=== PATIENT | male | born 1955 | race Caucasian/White ===

== ENCOUNTER → 2017-12-10 | Outpatient (CLI) | payer OTHER | END | disposition home or self-care (01) | LOC: SHCH 11:28 | PROVIDERS: ATTEND Internal Medicine Cardiovascular Disease | DX: I25.10 Atherosclerotic heart disease of native coronary artery without angina pectoris (principal); I10 Essential (primary) hypertension | CPT/HCPCS: 93306 ==

== ENCOUNTER → 2017-12-13 | Outpatient (CLI) | payer OTHER ==
[~2017-12-13] VITALS: Ht 182.9 cm; Wt 105.2 kg
[~2017-12-13] MED LIST: REGADENOSON 0.4 MG/5 ML PF SYG IVP SCH
== END | disposition home or self-care (01) ==
LOC: EDUNIT# 08:30 → SHCH 10:59
PROVIDERS: ATTEND Internal Medicine Cardiovascular Disease
DX: I25.10 Atherosclerotic heart disease of native coronary artery without angina pectoris (principal); I10 Essential (primary) hypertension
CPT/HCPCS: 78452; 93017; 96374; A9500 ×2; J2785

== ENCOUNTER → 2018-07-10 | Outpatient (CLI) | payer OTHER | END | disposition home or self-care (01) | LOC: RAH 14:25 | PROVIDERS: ATTEND Internal Medicine Critical Care Medicine | DX: M48.02 Spinal stenosis, cervical region (principal); M25.78 Osteophyte, vertebrae | CPT/HCPCS: 72141 ==

== ENCOUNTER 2019-04-08 08:00 | Day surgery (SDC) | payer OTHER ==
[~2019-04-08] VITALS: Ht 180.3 cm; Wt 104.3 kg
[~2019-04-08 08:00] MED LIST changes: +CLOP75TA32 PO; +EZET10TA48 PO; +HYDR-4060 PO; +LISI1TAB11 PO; +METF-444 PO; +METO25TA6 PO; +OMEP-50 PO; -REGADENOSON 0.4 MG/5 ML PF SYG IVP SCH; +ROSU20TA31 PO; +SODIUM CHLORIDE 0.9% 1000ML 1,000 ML IV ONE; +THIA100T75 PO
[2019-04-08 09:19] VITALS: BP 123/64
[2019-04-08] MEDS ORDERED: LIDOCAINE HCL-MPF 2% 5ML VIAL ONE (10:09)
[2019-04-08] MEDS ORDERED: PROPOFOL 1000 MG/100 ML 100 ML IV ONE (10:09)
[2019-04-08 10:39] VITALS: BP 92/33
[2019-04-08 10:44] VITALS: BP 94/53
[2019-04-08 10:49] VITALS: BP 106/61
[2019-04-08 10:54] VITALS: BP 110/63
[2019-04-08 11:00] VITALS: BP 108/60
--- NOTE | 2019-04-08 11:00 | NUR ---
PLAVIX PER ANGEL LAYTON RN, PT IS TO HOLD PLAVIX FOR 3 DAYS, ORDERED BY DR. ORTIZ. PT INSTRUCTED. VERBALIZED UNDERSTANDING.
== END 2019-04-08 11:25 | disposition home or self-care (01) ==
LOC: ENDO 08:00 → DAH 08:00 → ENDO 11:25
PROVIDERS: ATTEND Internal Medicine
DX: Z12.11 Encounter for screening for malignant neoplasm of colon (principal); D12.4 Benign neoplasm of descending colon; K63.5 Polyp of colon; K29.50 Unspecified chronic gastritis without bleeding; K57.30 Diverticulosis of large intestine without perforation or abscess without bleeding; K64.1 Second degree hemorrhoids; E78.5 Hyperlipidemia, unspecified; I10 Essential (primary) hypertension; K21.9 Gastro-esophageal reflux disease without esophagitis; I25.10 Atherosclerotic heart disease of native coronary artery without angina pectoris; J44.9 Chronic obstructive pulmonary disease, unspecified; F41.9 Anxiety disorder, unspecified; F32.9 Major depressive disorder, single episode, unspecified; E11.9 Type 2 diabetes mellitus without complications; M19.90 Unspecified osteoarthritis, unspecified site; Z95.1 Presence of aortocoronary bypass graft; Z98.890 Other specified postprocedural states; Z90.49 Acquired absence of other specified parts of digestive tract; Z79.84 Long term (current) use of oral hypoglycemic drugs; Z79.899 Other long term (current) drug therapy; Z87.891 Personal history of nicotine dependence; K22.8 Other specified diseases of esophagus
CPT/HCPCS: 43239; 45380; 45385; 82948 ×2; 88305; 93005; A4606; J2704; J3490; J7030

== ENCOUNTER → 2019-05-19 | Outpatient (CLI) | payer OTHER ==
[~2019-05-19] MED LIST changes: -LISI1TAB11 PO; +LISI1TAB27 PO; -SODIUM CHLORIDE 0.9% 1000ML 1,000 ML IV ONE
== END | disposition home or self-care (01) ==
LOC: SHCH 08:01
PROVIDERS: ATTEND Internal Medicine Cardiovascular Disease
DX: I65.23 Occlusion and stenosis of bilateral carotid arteries (principal); I25.10 Atherosclerotic heart disease of native coronary artery without angina pectoris
CPT/HCPCS: 93880

== ENCOUNTER → 2020-03-28 | Outpatient (CLI) | payer OTHER ==
[~2020-03-28] MED LIST changes: +IOHEXOL-350 75 ML VIAL IV ONE; -LISI1TAB27 PO; +LISI1TAB51 PO; -OMEP-50 PO; +OMEP20CA12 PO
== END | disposition home or self-care (01) ==
LOC: RAH 08:44
PROVIDERS: ATTEND Internal Medicine Critical Care Medicine
DX: K57.30 Diverticulosis of large intestine without perforation or abscess without bleeding (principal); I70.0 Atherosclerosis of aorta; Z90.49 Acquired absence of other specified parts of digestive tract
CPT/HCPCS: 74177; Q9967

== ENCOUNTER 2020-09-27 11:08 | Observation (INO) | payer OTHER ==
[~2020-09-27] VITALS: Ht 180.3 cm; Wt 105.1 kg
[~2020-09-27 11:08] MED LIST changes: -IOHEXOL-350 75 ML VIAL IV ONE
[2020-09-27] MEDS ORDERED: NITROGLYCERIN 1GM/1 INCH PACKET TD ONE ×3 (11:12→23:09)
[2020-09-27 11:19] LABS: BASOPHILS % (AUTO) 0.6 % (0.0-5.0); EOSINOPHILS % (AUTO) 1.4 % (0.0-8.0); HEMATOCRIT 41.8 % (42-54); LYMPHOCYTES % (AUTO) 17.9 % (21.0-51.0); MEAN CORPUSCULAR HEMOGLOBIN 31.8 pg (27.0-33.0); MEAN CORPUSCULAR HGB CONC 33.7 g/dL (32.0-36.0); MEAN CORPUSCULAR VOLUME 94.1 fL (79-99); NEUTROPHILS % (AUTO) 59.1 % (40.0-77.0); PLATELET COUNT (AUTO) 187 K/uL (130-400); RED BLOOD CELL COUNT(AUTO) 4.44 MIL/uL (4.50-6.20); RED CELL DISTRIBUTION WIDTH 13.2 % (11.0-15.5); WHITE BLOOD COUNT (AUTO) 5.2 K/uL (4.8-10.8)
[2020-09-27 11:44] LABS: INR 1.1 (0.85-1.15); PROTHROMBIN TIME 11.7 SEC (9.6-11.6)
[2020-09-27 11:45] LABS: PARTIAL THROMBOPLASTIN TIME 26.5 SEC (26.3-35.5)
[2020-09-27 12:00] LABS: CREATININE 1.1 mg/dL (0.5-1.5); POTASSIUM 3.9 mmol/L (3.5-5.1)
[2020-09-27 12:05] LABS: ALBUMIN 3.5 g/dL (3.5-5.0); BILIRUBIN,TOTAL 0.5 mg/dL (0.2-1.0)
[2020-09-27] MEDS ORDERED: MORPHINE SULFATE 4 MG/1ML SYG ONE (14:36)
[2020-09-27] MEDS ORDERED: ONDANSETRON HCL 4 MG/2 ML VIAL ONE (14:36)
[2020-09-27 14:39] LABS: APPEARANCE,URINE CLEAR (CLEAR); BILIRUBIN,URINE NEGATIVE (NEGATIVE); COLOR,URINE YELLOW (YELLOW); GLUCOSE, URINE (UA) NEGATIVE (NEGATIVE); KETONES,URINE NEGATIVE (NEGATIVE); LEUKOCYTE ESTERASE ,URINE NEGATIVE (NEGATIVE); NITRATE,URINE NEGATIVE (NEGATIVE); OCCULT BLOOD,URINE NEGATIVE (NEGATIVE); PH,URINE 5.5 (5.0-8.0); PROTEIN,URINE NEGATIVE (NEGATIVE); UROBILINOGEN,URINE 0.2 mg/dL (0.2-1.0)
[2020-09-27] MEDS ORDERED: ASPIRIN 325 MG TABLET PO ONE (16:15)
[2020-09-27] MEDS ORDERED: CLONIDINE HCL 0.1 MG TABLET PO PRN (16:15)
[2020-09-27] MEDS ORDERED: DOCUSATE SODIUM 100 MG CAP PO PRN (16:15)
[2020-09-27] MEDS ORDERED: ACETAMINOPHEN 325 MG TAB PO PRN (16:15)
[2020-09-27] MEDS ORDERED: ACETAMINOPHEN 650 MG SUPPOSITORY RC PRN (16:15)
[2020-09-27] MEDS: NITROGLYCERIN 1GM/1 INCH PACKET TD SCH ×2 (16:15→22:15)
[2020-09-27] MEDS ORDERED: ONDANSETRON HCL 4 MG/2 ML VIAL IVP PRN (16:15)
[2020-09-27] MEDS ORDERED: LABETALOL 20 MG/4 ML DISP.SYRIN IV PRN (16:15)
[2020-09-27] MEDS ORDERED: LACTULOSE 20 GM/30 ML UDCUP PO PRN (16:15)
[2020-09-27] MEDS: INSULIN HUMULIN R 100 UNIT/ML 3ML SQ SCH ×2 (16:30→21:00)
[2020-09-27 16:53] LABS: CREATINE KINASE, TOTAL 108 U/L (21-232); MYOGLOBIN 65 ng/mL (10-92); TROPONIN I < 0.04 ng/mL (0.00-0.06)
[2020-09-27] MEDS ORDERED: ACETAMINOPHEN 325 MG TAB ONE (17:53)
[2020-09-27] MEDS ORDERED: MORPHINE SULFATE 2 MG/ML 1ML SYG ONE ×2 (17:53→23:10)
[2020-09-27] MEDS ORDERED: THIAMINE HCL 100 MG/ML 2ML VIAL IVP SCH (20:15)
[2020-09-27] MEDS ORDERED: CHLORDIAZEPOXIDE HCL 25 MG CAP PO PRN (20:15)
[2020-09-27] MEDS ORDERED: LORAZEPAM 0.5 MG TABLET PO PRN (20:15)
[2020-09-27] MEDS ORDERED: FOLIC ACID 1 MG TABLET PO SCH (20:15)
[2020-09-27] MEDS ORDERED: THIAMINE HCL 100 MG TABLET PO SCH (20:15)
[2020-09-27] MEDS: ENOXAPARIN SODIUM 100 MG/1 ML SQ SCH (21:00)
[2020-09-27] MEDS: METOPROLOL TARTRATE 25 MG TAB PO SCH (21:00)
[2020-09-27 22:08] LABS: CREATINE KINASE, TOTAL 93 U/L (21-232); MYOGLOBIN 54 ng/mL (10-92); TROPONIN I < 0.04 ng/mL (0.00-0.06)
[2020-09-27] MEDS ORDERED: METOPROLOL TARTRATE 25 MG TAB ONE (23:09)
[2020-09-27] MEDS ORDERED: THIAMINE HCL 100 MG TABLET ONE (23:09)
[2020-09-27] MEDS ORDERED: FOLIC ACID 1 MG TABLET ONE (23:10)
[2020-09-27] MEDS ORDERED: ENOXAPARIN SODIUM 100 MG/1 ML SQ ONE (23:32)
[2020-09-27] MEDS ORDERED: ACETYLCYSTEINE 600 MG CAPSULE ONE (23:32)
[2020-09-28] VITALS (7 sets, daily range): BP systolic 126–157; BP diastolic 61–83
[2020-09-28] MEDS ORDERED: IOHEXOL-350 75 ML VIAL IV ONE (00:08)
[2020-09-28] MEDS: MORPHINE SULFATE 2 MG/ML 1ML SYG IVP PRN ×4 (04:03→20:05)
[2020-09-28] MEDS: NITROGLYCERIN 1GM/1 INCH PACKET TD SCH (04:10)
[2020-09-28] MEDS ORDERED: SODIUM CHLORIDE 0.9% 1000ML 1,000 ML IV ONE (05:30)
[2020-09-28] MEDS: INSULIN HUMULIN R 100 UNIT/ML 3ML SQ SCH ×4 (06:08→20:06)
[2020-09-28 06:12] LABS: BASOPHILS % (AUTO) 0.4 % (0.0-5.0); HEMATOCRIT 40.6 % (42-54); LYMPHOCYTES % (AUTO) 30.7 % (21.0-51.0); MEAN CORPUSCULAR HEMOGLOBIN 31.7 pg (27.0-33.0); MEAN CORPUSCULAR HGB CONC 33.7 g/dL (32.0-36.0); MONOCYTES % (AUTO) 18.8 % (3.0-13.0); NEUTROPHILS % (AUTO) 48.3 % (40.0-77.0); PLATELET COUNT (AUTO) 178 K/uL (130-400); RED BLOOD CELL COUNT(AUTO) 4.32 MIL/uL (4.50-6.20); RED CELL DISTRIBUTION WIDTH 13.2 % (11.0-15.5); WHITE BLOOD COUNT (AUTO) 5.1 K/uL (4.8-10.8)
[2020-09-28 06:43] LABS: CARBON DIOXIDE 24 mmol/L (21-32); CHLORIDE 101 mmol/L (101-111); CREATINE KINASE, TOTAL 94 U/L (21-232); GLOMERULAR FILTR. RATE CALC 79 mL/min (>60); GLUCOSE,RANDOM 130 mg/dL (70-105); MYOGLOBIN 41 ng/mL (10-92); PHOSPHORUS 3.1 mg/dL (2.5-4.9); POTASSIUM 3.7 mmol/L (3.5-5.1); SODIUM SERUM 138 mmol/L (136-145); TROPONIN I < 0.04 ng/mL (0.00-0.06); UREA NITROGEN, BLOOD 12 mg/dL (7-18)
[2020-09-28] MEDS ORDERED: ENOXAPARIN SODIUM 100 MG/1 ML SQ SCH (09:00)
[2020-09-28] MEDS ORDERED: ASPIRIN 81MG TAB.CHEW PO SCH (09:00)
[2020-09-28] MEDS: METOPROLOL TARTRATE 25 MG TAB PO SCH ×2 (09:03→20:01)
[2020-09-28] MEDS: ENOXAPARIN SODIUM 100 MG/1 ML SQ SCH (09:07)
[2020-09-28] MEDS: ACETYLCYSTEINE 600 MG CAPSULE PO SCH ×2 (09:07→20:00)
[2020-09-28] MEDS: FOLIC ACID 1 MG TABLET PO SCH (09:07)
[2020-09-28] MEDS: FAMOTIDINE/PF 20 MG/2 ML VIAL IV SCH ×2 (09:13→20:00)
[2020-09-28] MEDS: MULTIVITAMIN TABLET PO SCH (09:16)
[2020-09-28] MEDS ORDERED: PHARMACY COMMUNICATION MISC SCH (12:00)
[2020-09-28] MEDS ORDERED: COMPOUND PO MISCELLANEOUS 1 EACH MISC MISC PRN (12:15)
[2020-09-28] MEDS: LIDO 2% VISC 30ML+MAG/AL/SIMETH 30ML+DICYCLOMINE 20MG 10ML PO NR ×3 (12:40)
[2020-09-28 14:13] LABS: AMYLASE 65 U/L (25-115)
[2020-09-28 14:17] LABS: LIPASE < 50 U/L (114-286)
[2020-09-28] MEDS: LOSARTAN 50 MG TABLET PO SCH (14:24)
[2020-09-28] MEDS: CLOPIDOGREL BISULFATE 75 MG TAB PO SCH (14:24)
[2020-09-28] MEDS: PANTOPRAZOLE SODIUM 40 MG TABLET.DR PO SCH (20:01)
[2020-09-28] MEDS: APIXABAN 5 MG TABLET PO SCH (20:01)
[2020-09-28] MEDS ORDERED: ATORVASTATIN CALCIUM 40 MG TABLET PO SCH (21:00)
[2020-09-29] MEDS: MORPHINE SULFATE 2 MG/ML 1ML SYG IVP PRN (00:41)
[2020-09-29 03:36] VITALS: BP 133/66
[2020-09-29 03:38] LABS: MEAN CORPUSCULAR HGB CONC 33.6 g/dL (32.0-36.0); MEAN CORPUSCULAR VOLUME 95.5 fL (79-99); RED BLOOD CELL COUNT(AUTO) 4.4 MIL/uL (4.50-6.20); RED CELL DISTRIBUTION WIDTH 13.1 % (11.0-15.5); WHITE BLOOD COUNT (AUTO) 5.7 K/uL (4.8-10.8)
[2020-09-29 04:03] LABS: CREATININE 1.1 mg/dL (0.5-1.5); POTASSIUM 3.6 mmol/L (3.5-5.1)
[2020-09-29] MEDS ORDERED: LORAZEPAM 2 MG/ML 1 ML VIAL ONE (04:10)
[2020-09-29] MEDS ORDERED: LORAZEPAM 2 MG/ML 1 ML VIAL IVP ONE (04:15)
[2020-09-29] MEDS: INSULIN HUMULIN R 100 UNIT/ML 3ML SQ SCH ×2 (05:52→11:30)
[2020-09-29 08:10] VITALS: BP 158/72
[2020-09-29] MEDS: FOLIC ACID 1 MG TABLET PO SCH (09:31)
[2020-09-29] MEDS: MULTIVITAMIN TABLET PO SCH (09:31)
[2020-09-29] MEDS: APIXABAN 5 MG TABLET PO SCH (09:31)
[2020-09-29] MEDS: LOSARTAN 50 MG TABLET PO SCH (09:31)
[2020-09-29] MEDS: ACETYLCYSTEINE 600 MG CAPSULE PO SCH (09:31)
[2020-09-29] MEDS: METOPROLOL TARTRATE 25 MG TAB PO SCH (09:32)
[2020-09-29] MEDS: PANTOPRAZOLE SODIUM 40 MG TABLET.DR PO SCH (09:32)
[2020-09-29] MEDS: CLOPIDOGREL BISULFATE 75 MG TAB PO SCH (09:32)
[2020-09-29] MEDS: FAMOTIDINE/PF 20 MG/2 ML VIAL IV SCH (09:32)
[2020-09-29] MEDS ORDERED: APIX5TAB PO (10:44)
[2020-09-29] MEDS ORDERED: PANT40TA55 PO (10:50)
[2020-09-29] MEDS ORDERED: HYDROCODONE/ACETAMINOPHEN 5/325 MG TAB PO PRN (11:31)
[2020-09-29 11:43] VITALS: BP 122/58
[2020-09-29] MEDS: LIDO 2% VISC 30ML+MAG/AL/SIMETH 30ML+DICYCLOMINE 20MG 10ML PO NR ×3 (12:47)
[2020-09-29] MEDS ORDERED: METOPROLOL TARTRATE 25 MG TAB PO SCH (21:00)
== END 2020-09-29 12:30 | disposition home or self-care (01) ==
LOC: EDH 11:08 → EDHIP 16:02 → 4BH 09-28 00:39
PROVIDERS: ADMIT Internal Medicine Critical Care Medicine; ATTEND Internal Medicine Critical Care Medicine
DX: R07.89 Other chest pain (principal); I26.99 Other pulmonary embolism without acute cor pulmonale; I25.810 Atherosclerosis of coronary artery bypass graft(s) without angina pectoris; I10 Essential (primary) hypertension; E11.9 Type 2 diabetes mellitus without complications; E78.5 Hyperlipidemia, unspecified; E66.01 Morbid (severe) obesity due to excess calories; G89.29 Other chronic pain; M54.9 Dorsalgia, unspecified; K21.9 Gastro-esophageal reflux disease without esophagitis; J44.9 Chronic obstructive pulmonary disease, unspecified; E78.00 Pure hypercholesterolemia, unspecified; F10.10 Alcohol abuse, uncomplicated; Z87.891 Personal history of nicotine dependence; Z90.49 Acquired absence of other specified parts of digestive tract; Z95.1 Presence of aortocoronary bypass graft; Z79.01 Long term (current) use of anticoagulants; Z79.02 Long term (current) use of antithrombotics/antiplatelets; Z79.84 Long term (current) use of oral hypoglycemic drugs; Z79.899 Other long term (current) drug therapy; Z88.5 Allergy status to narcotic agent; Z68.32 Body mass index [BMI] 32.0-32.9, adult
CPT/HCPCS: 36415 ×3; 71045; 71260; 80048 ×2; 80053; 80061; 81003; 82150; 82550 ×4; 82948 ×6; 83690; 83735; 83874 ×3; 83880; 84100; 84484 ×4; 85025 ×2; 85027; 85378; 85610; 85730; 93005; 93306; 93970; 94760 ×2; 96372; 96374; 96375 ×2; 96376 ×2; 99285; G0378 ×43; J1650 ×2; J2060; J2270; J2405 ×2; J3490 ×3; Q9967

== ENCOUNTER → 2021-02-02 | Outpatient (CLI) | payer OTHER ==
[~2021-02-02] MED LIST changes: +APIX5TAB PO; -HYDR-4060 PO; -METF-444 PO; +PANT40TA55 PO
== END | disposition home or self-care (01) ==
LOC: SHCH 10:03
PROVIDERS: ATTEND Internal Medicine Cardiovascular Disease
DX: I87.2 Venous insufficiency (chronic) (peripheral) (principal); I10 Essential (primary) hypertension; I35.8 Other nonrheumatic aortic valve disorders
CPT/HCPCS: 93306; 93356; 93970

== ENCOUNTER → 2022-12-07 | Outpatient (CLI) | payer OTHER ==
[~2022-12-07] MED LIST changes: +EMPA10TA PO; +FURO20TA4 PO; +ISOS30TA92 PO; +LOSA50TA64 PO; +METO-408 PO; +REGADENOSON 0.4 MG/5 ML PF SYG IVP ONE; +ROSU40TA21 PO
== END | disposition home or self-care (01) ==
LOC: SHCH 07:45
PROVIDERS: ATTEND Internal Medicine Cardiovascular Disease
DX: I25.10 Atherosclerotic heart disease of native coronary artery without angina pectoris (principal); R07.89 Other chest pain; Z95.1 Presence of aortocoronary bypass graft
CPT/HCPCS: 78452; 93017; J2785; A9500 ×2; 96374

== ENCOUNTER → 2022-12-14 | Outpatient (CLI) | payer OTHER ==
[~2022-12-14] MED LIST changes: -EMPA10TA PO; -FURO20TA4 PO; -ISOS30TA92 PO; -LOSA50TA64 PO; -METO-408 PO; -REGADENOSON 0.4 MG/5 ML PF SYG IVP ONE; -ROSU40TA21 PO
== END | disposition home or self-care (01) ==
LOC: RAH 11:57
PROVIDERS: ATTEND Pain Medicine Interventional Pain Medicine
DX: M54.6 Pain in thoracic spine (principal)
CPT/HCPCS: 72072

== ENCOUNTER → 2022-12-31 | Outpatient (CLI) | payer OTHER ==
[~2022-12-31] MED LIST changes: +IOHEXOL 350 MG/ML 100ML INFUS..BTL IV ONE
== END | disposition home or self-care (01) ==
LOC: RAH 07:52
PROVIDERS: ATTEND Internal Medicine Cardiovascular Disease
DX: I71.43 Infrarenal abdominal aortic aneurysm, without rupture (principal); I70.0 Atherosclerosis of aorta; I70.8 Atherosclerosis of other arteries; K57.90 Diverticulosis of intestine, part unspecified, without perforation or abscess without bleeding; N32.89 Other specified disorders of bladder; R10.9 Unspecified abdominal pain; M47.815 Spondylosis without myelopathy or radiculopathy, thoracolumbar region
CPT/HCPCS: 74174; Q9967

== ENCOUNTER 2023-08-01 11:46 | Emergency (ER) | payer OTHER ==
[~2023-08-01] VITALS: Ht 177.8 cm; Wt 102.1 kg
[~2023-08-01 11:46] MED LIST changes: -APIX5TAB PO; +EMPA10TA PO; +FURO20TA4 PO; -IOHEXOL 350 MG/ML 100ML INFUS..BTL IV ONE; +ISOS30TA92 PO; -LISI1TAB51 PO; +LOSA50TA64 PO; +METO-408 PO; -METO25TA6 PO; -OMEP20CA12 PO; -PANT40TA55 PO; -ROSU20TA31 PO; +ROSU40TA21 PO; -THIA100T75 PO
[2023-08-01 11:58] VITALS: BP 163/90; PULSE 81; RESP 20
[2023-08-01 14:15] LABS: BASOPHILS # (AUTO) 0.04 K/uL (0.00-0.20); BASOPHILS % (AUTO) 0.5 % (0.0-5.0); EOSINOPHILS # (AUTO) 0.19 K/uL (0.00-0.70); EOSINOPHILS % (AUTO) 2.2 % (0.0-8.0); IMMATURE GRANULOCYTE ABSOLUTE 0.05 K/uL (0-1); LYMPHOCYTES # (AUTO) 2.5 K/uL (1.0-4.8); LYMPHOCYTES % (AUTO) 29.3 % (21.0-51.0); MEAN CORPUSCULAR HEMOGLOBIN 31.7 pg (27.0-33.0); MEAN CORPUSCULAR HGB CONC 33.5 g/dL (32.0-36.0); MEAN CORPUSCULAR VOLUME 94.5 fL (79-99); MONOCYTES # (AUTO) 0.8 K/uL (0.1-1.0); MONOCYTES % (AUTO) 9.1 % (3.0-13.0); NEUTROPHILS % (AUTO) 58.3 % (40.0-77.0); PLATELET COUNT (AUTO) 216 K/uL (130-400); RED BLOOD CELL COUNT(AUTO) 5.08 MIL/uL (4.50-6.20); RED CELL DISTRIBUTION WIDTH 14.5 % (11.0-15.5); WHITE BLOOD COUNT (AUTO) 8.5 K/uL (4.8-10.8)
[2023-08-01 14:25] LABS: CREATININE 1.2 mg/dL (0.5-1.5); INR 0.99 (0.85-1.15); PROTHROMBIN TIME 11.5 SEC (9.6-11.6)
[2023-08-01 14:26] LABS: PARTIAL THROMBOPLASTIN TIME 27.5 SEC (26.3-35.5)
[2023-08-01 14:30] LABS: APPEARANCE,URINE CLEAR (CLEAR); BILIRUBIN,URINE NEGATIVE (NEGATIVE); COLOR,URINE LIGHT-YELLOW (YELLOW); GLUCOSE, URINE (UA) >=1000 mg/dL (NEGATIVE); KETONES,URINE NEGATIVE (NEGATIVE); LEUKOCYTE ESTERASE ,URINE NEGATIVE Leu/uL (NEGATIVE); NITRATE,URINE NEGATIVE (NEGATIVE); OCCULT BLOOD,URINE NEGATIVE (NEGATIVE); PROTEIN,URINE NEGATIVE (NEGATIVE); UROBILINOGEN,URINE 0.2 mg/dL (0.2-1.0)
[2023-08-01 14:30] LABS: ALBUMIN 3.8 g/dL (3.5-5.0); BILIRUBIN,TOTAL 0.6 mg/dL (0.2-1.0); TOTAL PROTEIN, SERUM 7.8 g/dL (6.0-8.3)
[2023-08-01 14:31] LABS: ADD UA MICROSCOPIC YES
[2023-08-01 14:44] LABS: B-TYPE NATRIURETIC PEPTIDE 37 pg/mL (0-100)
[2023-08-01 14:49] LABS: BACTERIA,URINE RARE /HPF (None Seen); WBC,URINE 0-1 /HPF (0-1)
== END 2023-08-01 14:40 | disposition left against medical advice (07) ==
LOC: EDH 11:46
DX: I63.9 Cerebral infarction, unspecified (principal); Z53.21 Procedure and treatment not carried out due to patient leaving prior to being seen by health care provider
CPT/HCPCS: 36415; 71045; 80053; 81001; 82550; 83721; 83880; 84484; 85025; 85610; 85730; 93005; 99281

== ENCOUNTER → 2023-08-02 | Outpatient (CLI) | payer OTHER | END | disposition home or self-care (01) | LOC: RAH 12:56 | PROVIDERS: ATTEND Internal Medicine Cardiovascular Disease | DX: I63.9 Cerebral infarction, unspecified (principal) | CPT/HCPCS: 70551 ==

== ENCOUNTER → 2023-09-18 | Outpatient (CLI) | payer OTHER | END | disposition home or self-care (01) | LOC: SHCH 09:21 | PROVIDERS: ATTEND Internal Medicine Cardiovascular Disease | DX: I11.9 Hypertensive heart disease without heart failure (principal); I65.23 Occlusion and stenosis of bilateral carotid arteries; I25.10 Atherosclerotic heart disease of native coronary artery without angina pectoris | CPT/HCPCS: 93306; 93880 ==

== ENCOUNTER → 2024-02-17 | Outpatient (CLI) | payer OTHER ==
[~2024-02-17] MED LIST changes: -ROSU40TA21 PO; +ROSU40TA70 PO
== END | disposition home or self-care (01) ==
LOC: SHCH 08:02
PROVIDERS: ATTEND Internal Medicine Cardiovascular Disease
DX: I71.40 Abdominal aortic aneurysm, without rupture, unspecified (principal)
CPT/HCPCS: 93978

== ENCOUNTER 2025-01-07 05:35 | Day surgery (SDC) | payer OTHER ==
[2025-01-07] VITALS (9 sets, daily range): BP systolic 99–133; BP diastolic 60–80; PULSE 64–85; RESP 14–18; TEMP 97.5–97.8
[~2025-01-07] VITALS: Ht 177.8 cm; Wt 113.4 kg
[~2025-01-07 05:35] MED LIST changes: +ASPI-1197 PO; -EMPA10TA PO; -ROSU40TA70 PO; +ROSU40TA88 PO
[2025-01-07] MEDS: 0.9%NACL 1000ML 1,000 ML IV ONE (06:32)
[2025-01-07] MEDS ORDERED: proPOFol 10 MG/ML 20ML VIAL IV ONE ×2 (08:02)
== END 2025-01-07 09:30 | disposition home or self-care (01) ==
LOC: DAH 05:35 → ENDO 05:35
PROVIDERS: ATTEND Internal Medicine Gastroenterology
DX: R14.0 Abdominal distension (gaseous) (principal); K21.01 Gastro-esophageal reflux disease with esophagitis, with bleeding; K29.50 Unspecified chronic gastritis without bleeding; K63.5 Polyp of colon; K64.0 First degree hemorrhoids; K64.4 Residual hemorrhoidal skin tags; K57.30 Diverticulosis of large intestine without perforation or abscess without bleeding; K74.02 Hepatic fibrosis, advanced fibrosis; K42.9 Umbilical hernia without obstruction or gangrene; R12 Heartburn; J44.9 Chronic obstructive pulmonary disease, unspecified; I10 Essential (primary) hypertension; E78.5 Hyperlipidemia, unspecified; I25.10 Atherosclerotic heart disease of native coronary artery without angina pectoris; F10.20 Alcohol dependence, uncomplicated; R93.1 Abnormal findings on diagnostic imaging of heart and coronary circulation; R10.32 Left lower quadrant pain; E66.01 Morbid (severe) obesity due to excess calories; F41.9 Anxiety disorder, unspecified; F32.A Depression, unspecified; E11.9 Type 2 diabetes mellitus without complications; M19.90 Unspecified osteoarthritis, unspecified site; Z86.0100 Personal history of colon polyps, unspecified; Z87.898 Personal history of other specified conditions; Z68.33 Body mass index [BMI] 33.0-33.9, adult; Z79.899 Other long term (current) drug therapy; Z79.82 Long term (current) use of aspirin; Z79.84 Long term (current) use of oral hypoglycemic drugs; Z95.1 Presence of aortocoronary bypass graft; Z96.652 Presence of left artificial knee joint; Z88.8 Allergy status to other drugs, medicaments and biological substances
CPT/HCPCS: 43239; 45380; J7030 ×2; J2704 ×2; A4620; A4215 ×2; A4223; A4222; A4221; A4663; A4606; J3490

== ENCOUNTER → 2025-03-25 | Outpatient (CLI) | payer OTHER ==
[2025-03-25] MEDS: REGADENOSON 0.4 MG/5 ML PF SYG IVP ONE (10:15)
== END | disposition home or self-care (01) ==
LOC: SHCH 07:44
PROVIDERS: ATTEND Internal Medicine Cardiovascular Disease
DX: I25.10 Atherosclerotic heart disease of native coronary artery without angina pectoris (principal)
CPT/HCPCS: 78452; 93017; J2785; A9500 ×2